=== PATIENT | female | born 1990 | race Caucasian/White ===

== ENCOUNTER 2017-12-30 02:19 | Outpatient (CLI) | payer OTHER, SELFPAY ==
--- NOTE | 2017-12-30 14:16 | DI.RAD_ITS ---
SYMPTOMS/DIAGNOSIS: MENSTRUAL IRREGULARITY, N92.6, ATTEMPTING HYSTEROSALPINGOGRAM: Fluoroscopy Time: 1 sec Hysterosalpingogram was performed in conjunction with Dr. Mari Hinojosa of the Department of Obstetrics and Gynecology. The procedure was performed according to protocol. Flow from the fallopian tubes into the peritoneal cavity was identified bilaterally. No filling defects were seen within the uterine cavity. IMPRESSION: No evidence of tubal obstruction. The findings were discussed with Dr. Hinojosa on the date of the examination.
== END 2017-12-30 02:39 ==
PROVIDERS: PCP Family Medicine; Visit Provider Obstetrics & Gynecology Gynecology
DX: N92.6 Irregular menstruation, unspecified (principal); N97.9 Female infertility, unspecified
CPT/HCPCS: 74740

== ENCOUNTER 2018-02-19 14:26 | Outpatient (CLI) | payer OTHER, SELFPAY ==
--- NOTE | 2018-02-19 14:31 | DI.US_ITS ---
SYMPTOM/DIAGNOSIS: SPOTTING, ? VIABILITY OBSTETRICAL ULTRASOUND: Routine examination was performed. There is a single intrauterine gestation present. Estimated sonographic age based on crown/rump length is 6 weeks 5 days. heart rate is 126 beats/minute. Yolk sac was visualized and is unremarkable. Both ovaries are visualized. There are complex cysts seen in both ovaries. In the right ovary there is a 2.1 x 1.9 x 1.5 cm complex cyst. In the left ovary there is a 2.1 x 1.2 x 1.5 cm complex cyst and a 2.2 x 3.4 x 1.5 cm simple cyst. There is normal blood flow to the ovaries. The uterine size is 9.1 cm x 6.8 x 5.4 cm. IMPRESSION: Single living intrauterine gestation. Estimated sonographic age is 6 weeks 5 days. Many abnormalities cannot be diagnosed. A normal exam does not exclude a congenital anomaly. Radiology No. [id number] LMP: 01/01/18 Exam Date: 02/19/18 [facility] wks days on EDC ([facility]) 09/07/18 Confirmed: HISTORY: ? VIABILITY ---- PREDICTED GESTATIONAL AGE NUMBER 7- weeks with a range of 6- week to 8- weeks. 1 Determined by___1STUS_XX__LMP___HISTORY Info. pertaining to fetus # PLACENTA PRESENTATION Grade Cephalic___ Anterior___Posterior___ Breech____ Right Left Transverse(head right___ Fundal___Low-lying___Previa___ Transverse(head left___ Varying BIOMETRY AMNIOTIC FLUID BPD: mm weeks Normal HC: mm weeks Oligo Polyhydramnios AC: mm weeks FL: mm weeks AMNIOTIC FLUID INDEX >26 WK CRL: 7.7 mm 6 +5 weeks Cisterna Magna: mm CI: RUQ: LUQ Cerebellum: cm EFW: grams Percentile RLQ: LLQ Total: cms Composite AGE= 6 +5 wks EDC by US__09/09/2018 BIOPHYSICAL PROFILE ANATOMY IDENTIFIED SCORE 0/2 Heart: 4-Chamber___Rate:BPM__126 BPM___ LVOT: RVOT: Amniotic Fluid(>2cms)____ Stomach: Kidneys: Respirations (>30 secs) Bladder: Post. Fossa: Body Flex/Extension 3 vessel cord: Ventricles: cord insertion: Lips:____ Extremity Flex/Extension spinal morphology: Nose: Total Score= Palate: NS=not seen
[2018-02-19 15:54] LABS: HCG Quant, Pregnancy 42030 mIU/mL (1-3)
== END 2018-02-19 14:46 ==
PROVIDERS: PCP Family Medicine; Visit Provider Advanced Practice Midwife
DX: O26.851 Spotting complicating pregnancy, first trimester (principal)
CPT/HCPCS: 36415; 76817; 84702

== ENCOUNTER 2018-03-15 11:56 | Outpatient (CLI) | payer OTHER, SELFPAY ==
[2018-03-15 12:45] LABS: Abs Immature Grans 0.03 k/cumm (0.0-0.09); Absolute Basophil Count 0.01 k/cumm (0.0-0.2); Absolute Eosinophil Count 0.04 k/cumm (0.0-0.7); Absolute Lymphocyte Count 2.32 k/cumm (1.2-3.4); Absolute Monocyte Count 0.52 k/cumm (0.11-0.7); Absolute Neutrophil Count 6.62 k/cumm (1.2-6.7); Basophils % 0.1; Eosinophils % 0.4; HCT 40.7 % (36.0-46.0); HGB 13.6 g/dL (12.0-15.5); Immature Grans % 0.3; Lymphocytes % 24.3; Mean Corp. HGB Concentration 33.4 g/dL (32.0-36.0); Mean Corpuscular Hemoglobin 30.2 pg (27.0-33.0); Mean Corpuscular Volume 90.2 fL (80-95); Mean Platelet Volume 9.8 fL (8.0-11.0); Monocytes % 5.5; Neutrophils % 69.4; Platelet Count 272 x1000/uL (130-400); RBC 4.51 m/cumm (4.00-5.20); RBC Distribution Width 12.9 % (11.7-14.6); White Blood Cell Count 9.54 k/cumm (4.4-10.8)
[2018-03-15 13:39] LABS: TSH (W/Ref FT4) 1.57 uIU/mL (0.358-3.74)
[2018-03-16 10:54] LABS: Varicella IgG Antibody Positive
[2018-03-16 11:13] LABS: Hepatitis B Surface Ag Negative (NEGAT); Hepatitis C Ab w Rflx HCV PCR Negative (NEGAT)
[2018-03-16 11:14] LABS: Rubella IgG Ab (UVM) Positive
[2018-03-16 11:25] LABS: Syphilis Serology (RPR) Negative (Negative)
[2018-03-16 12:28] LABS: HIV-1/2 Ag & Ab Screen Negative (NEGAT)
== END 2018-03-15 12:16 ==
PROVIDERS: PCP Family Medicine; Visit Provider Advanced Practice Midwife
DX: Z34.91 Encounter for supervision of normal pregnancy, unspecified, first trimester (principal); Z11.59 Encounter for screening for other viral diseases; Z01.84 Encounter for antibody response examination; Z11.4 Encounter for screening for human immunodeficiency virus [HIV]
CPT/HCPCS: 36415; 80055; 86787; 86803; 86850; 86900; 86901; 87340; 87389; 84443; 86592; 86762

== ENCOUNTER 2018-03-15 12:31 | Outpatient (REF) | payer OTHER, SELFPAY ==
--- NOTE | 2018-03-15 11:30 | PAPFT_PTH ---
PATIENT: Shawn Whitney LOC: [facility] U#:[id number] AGE/SX: 27/F ROOM: RE03/15/[address]: Albaro Fung RN : 1990 BED: DIS: 03/15/2018 SPEC #: [id number] RECD: 03/15/18 18:04 STATUS: SIDDHARTHA REMayank #: [id number] SUNG: 03/15/18 11:[address]: Albaro Fung DEPT: [facility] Cytology RECD BY: Malorie Peguero ENTERED: 03/15/18 18:05 SP TYPE: PAPFT OTHR DR: Allen Cui Tissues: 1 - CX/ENDOCX FOR PAP SMEARS Procedures: PAP THIN PREP/UVM Screening Comments: [id number] (UNSATISFACTORY FOR EVALUATION)
[2018-03-15 15:32] LABS: Bilirubin Negative (Negative); Blood Negative (Negative); Clarity Cloudy; Glucose Negative (Negative); Ketones Trace mg/dL (Negative); Leukocyte Esterase Negative (Negative); Nitrite Negative (Negative); Specific Gravity >= 1.030 (1.005-1.025); Urobilinogen 0.2 EU/dL (Up TO 0.2)
[2018-03-15 15:47] LABS: Tricyclic Antidepressants Negative (Negative)
[2018-03-15 15:52] LABS: *AMPHETAMINES SCREEN URINE Negative (Negative); *BARBITURATES SCREEN URINE Negative (Negative); *BENZODIAZEPINES SCREEN URINE Negative (Negative); Cannabinoids THC Negative (Negative); Cocaine Screen,Urine Negative (Negative); METHADONE URINE SCREEN Negative (Negative); OPIATES URINE SCREEN Negative (Negative)
[2018-03-16 15:21] LABS: Chlamydia Result Negative; GC Result Negative; Specimen Description CERVIX
[2018-03-19 18:33] LABS: Buprenorphine Negative; Norbuprenorphine Negative
== END 2018-03-15 12:51 ==
LOC: LBN 12:31
PROVIDERS: PCP Family Medicine; Visit Provider Advanced Practice Midwife
DX: Z34.91 Encounter for supervision of normal pregnancy, unspecified, first trimester (principal); Z11.3 Encounter for screening for infections with a predominantly sexual mode of transmission; Z12.4 Encounter for screening for malignant neoplasm of cervix
CPT/HCPCS: 80307; 87491; 87591; 88142; 81003; 87086

== ENCOUNTER 2018-03-31 08:21 | Outpatient (CLI) | payer OTHER, SELFPAY ==
[2018-03-31 08:56] LABS: Kit/Specimen SENT
[2018-04-07 16:38] LABS: Result Summary NEGATIVE; Specimen WB Whole Blood
== END 2018-03-31 08:41 ==
PROVIDERS: PCP Family Medicine; Visit Provider Nurse Practitioner
DX: Z34.91 Encounter for supervision of normal pregnancy, unspecified, first trimester (principal); Z13.228 Encounter for screening for other metabolic disorders
CPT/HCPCS: 36415; 81220

== ENCOUNTER 2018-04-19 13:00 | Emergency (ER) | payer OTHER, SELFPAY ==
[2018-04-19 13:22] VITALS: BP 136/76; PULSE 91; RESP 20; TEMP 36.8; O2SAT 100
--- NOTE | 2018-04-19 14:10 | W.ED.GENAD ---
Discharge Plan Disposition Patient Disposition: HOME Condition: Good Discharge Details Chief Complaint: Palpitatns Clinical Impression: Palpitations, Acute hypokalemia Primary Care Provider: Allen Cui ED Provider: Tian Gill Home Meds and New Rx's Prescriptions: No Action prenat.vits,navin,bax-rbti-lecwr tablet 1 tab PO DAILY Qty: 30 RF: 0 acetaminophen [Tylenol Extra Strength] 500 MG tablet 500 mg PO PRN RF: 0 Discharge Instructions Instructions: Palpitations (ED), Hypokalemia (ED) Additional Instructions: Please eat foods that are rich in potassium. 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 If you notice any worsening of your symptoms, or any new symptoms such as vomiting, diarrhea, fever, chills, shortness of breath, chest pain, numbness, weakness, or fainting , please return immediately to the emergency department for reevaluation. Please follow up with your primary care provider as soon as possible for reassessment and reevaluation. As always, it was a pleasure participating in your medical care today. Referrals: Allen Cui [Primary Care Provider] - Discharge Data Discharge Date/Time-TO BE ENTERED AT DEPARTURE: 04/19/18 15:39 Medical Decision Making This is a very pleasant 28-year-old female who is a who is currently 15 weeks who presents today for evaluation of palpitations. It is been occurring over the last 5 days, it has been intermittent, and very brief. She has no associated symptoms of lightheadedness, chest pain, shortness of breath, numbness, tingling, or syncopal-like symptoms. Physical exam demonstrates no significant abnormality. Vital signs are stable and reassuring. EKG demonstrates no significant abnormalities or changes. Electrolytes demonstrate mild hypokalemia at 3.3, which we have corrected with oral potassium but no evidence of other significant electrolyte abnormality. TSH is normal. Patient's vital signs and laboratory workup is otherwise encouraging and reassuring. Because of this patient's symptomatology we will give her a Zeo patch for outpatient home use to evaluate her palpitations. With a reassuring workup and vital signs I feel she can be safely discharged home with close follow-up with her OB doctor and her family doctor. We also encouraged a diet high in potassium. We discussed red flags which to return and the patient understands. I have extensively reviewed the treatment plan and discharge instructions with the patient and their family. I have addressed all patient concerns at this time. The patient and family was made aware of what symptoms to monitor for that would warrant a return to the emergency department. Discussed the plan with the patient and family, they demonstrate verbal understanding and agreement with our assessment and plan at this time. EKG 13: 36 Rate 87, intervals normal, sinus rhythm, no ST elevations or depressions, no T wave inversions except for V1. No significant interval abnormalities. No epsilon wave, no delta wave, no signs of STEMI. No evidence of dysrhythmia. HPI General Date/Time Provider Initiated Documentation: 04/19/18 14:04. HPI Narrative: This is a 28-year-old female who is currently 15 weeks who presents today for evaluation of palpitations. She states that for the last 5 days she has had occasional very brief intermittent palpitations which occur at rest, and never with activity. She has had no associated chest pain, lightheadedness, numbness, tingling, weakness, fever, chills. She has not had any excessive caffeine intake, she denies any IV or illicit drug use. She denies any history of symptoms like this in the past. She has no other modifying factors. She denies any pertinent family history, or any recent surgical history. Related Data Home Medications Medication Instructions Recorded Confirmed acetaminophen [Tylenol Extra 500 mg PO PRN 10/27/14 04/19/18 Strength] 1 tab PO DAILY #30 tab 02/11/18 04/19/18 vitamin,calcium,nqffketp-thnp-ysfhp acid tablet Previous Rx's Medication Instructions Recorded 1 tab PO DAILY #30 tab 02/11/18 vitamin,calcium,nzpmmwub-izcp-ovtqc acid tablet Allergies Allergy/AdvReac Type Severity Reaction Status Date / Time betamethasone dipropionate Allergy Severe rash Unverified 04/19/18 13:27 [From Lotrisone] clotrimazole [From Lotrisone] Allergy Severe rash Unverified 04/19/18 13:27 adhesive Allergy Intermediate rash Unverified 04/19/18 13:27 General Stated Complaint: Palpitatns LYNN: 3 Review of Systems Review of Systems All systems reviewed & are unremarkable except as noted in HPI and below PFSH Medical History Ankle pain, chronic (Chronic) Chronic low back pain (Chronic) Depression (Chronic) Recurrent candidiasis of vagina (Resolved) Exposed orthopaedic hardware (Acute) Fixation hardware in leg (Acute) Surgical History History of skin graft (Acute) brain surgery Family History Mother Essential hypertension Hyperlipidemia Father Chronic pain Maternal Aunt Personal history of malignant neoplasm Maternal Aunt Mental disorder Paternal Aunt Breast cancer Social History adopted: No household members: spouse and other details: 2 Spouse Caesar number of children: 0 current occupational status: employed current occupation: [employer] pets and animals: Yes (Wm and Pluto) pets and animals: dog(s) leisure activities: exercise and volunteer work details: 30 min 7 days/wk Smoking/Tobacco Use Status: Never second hand exposure: Yes alcohol intake: current alcohol intake frequency: a few times a week substance use type: does not use seatbelt use: always Female Reproductive History Menstrual Age of Menarche: 13 Duration of menses: 6-7 days control method: pills History History 1 Para 0 Hx # Term Pregnancies 0 Multiple births 0 Hx # Pregnancies 0 Ectopic pregnancies 0 AB induced 0 Hx Number of Living Children 0 AB spontaneous 0 Exam Narrative Exam Narrative: 1.Const: Well-nourished, Well-developed, appearing stated age 2.Eyes: PERRL, no conjunctival injection, and symmetrical lids. 3.ENT: Atraumatic external nose and ears. Moist MM. Neck: Symmetric, trachea midline, No thyromegaly. 4.CVS: +S1/S2, No murmurs or gallops. Peripheral pulses 2+ and equal in all extremities. Brisk capillary refill in all extremities. 5.RESP: Unlabored respiratory effort. Clear to auscultation bilaterally. No wheezes rales or rhonchi 6.GI: Soft, Nontender/Nondistended, No hepatosplenomegaly. No guarding or rebound. Appropriately gravid abdomen. No abdominal tenderness. 7.MSK: Normocephalic/Atraumatic, Extremities w/o deformity or ttp No cyanosis or clubbing, Normal movement of all extremities 8.Skin: Warm, Dry. No rashes or lesions. 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 Sensation grossly intact, no focal neurologic deficits. 10.Psych: (AAO) x3. Appropriate mood and affect Course Vital Signs Temperature 36.8 C 04/19/18 13:22 Pulse 91 H 04/19/18 13:22 Respiratory Rate 20 04/19/18 13:22 Blood Pressure 136/76 04/19/18 13:22 Pulse Oximetry 100 04/19/18 13:22 Temperature 36.8 C 04/19/18 13:22 Temperature Source Temporal Artery Scan 04/19/18 13:22 Pulse 91 H 04/19/18 13:22 Respiratory Rate 20 04/19/18 13:22 Respiratory Effort Non-Labored 04/19/18 13:22 Blood Pressure 136/76 04/19/18 13:22 Blood Pressure Position Sitting 04/19/18 13:22 Pulse Oximetry 100 04/19/18 13:22 Oxygen Delivery Method Room Air 04/19/18 13:22 Oxygen Flow Rate 0 04/19/18 13:22 Pain Level 3 04/19/18 13:27
[2018-04-19 14:22] LABS: Abs Immature Grans 0.03 k/cumm (0.0-0.09); Absolute Basophil Count 0.01 k/cumm (0.0-0.2); Absolute Eosinophil Count 0.04 k/cumm (0.0-0.7); Absolute Monocyte Count 0.47 k/cumm (0.11-0.7); Absolute Neutrophil Count 7.01 k/cumm (1.2-6.7); Basophils % 0.1; Eosinophils % 0.4; HCT 39.9 % (36.0-46.0); HGB 13.5 g/dL (12.0-15.5); Immature Grans % 0.3; Lymphocytes % 23.3; Mean Corp. HGB Concentration 33.8 g/dL (32.0-36.0); Mean Corpuscular Volume 88.7 fL (80-95); Mean Platelet Volume 9.9 fL (8.0-11.0); Monocytes % 4.8; Neutrophils % 71.1; Platelet Count 241 x1000/uL (130-400); RBC Distribution Width 12.4 % (11.7-14.6); White Blood Cell Count 9.86 k/cumm (4.4-10.8)
[2018-04-19 14:46] LABS: ALT 18 U/L (12-78); AST 11 U/L (15-37); Albumin 3.4 g/dL (3.4-5.0); Alkaline Phosphatase 79 U/L (46-116); Anion Gap 9.5 mmol/L (3-11); BUN 10 mg/dL (7-18); Bilirubin, Total 0.2 mg/dL (0.2-1.0); CO2 27.5 mmol/L (21.0-32.0); CREATININE 0.62 mg/dL (0.55-1.02); Calcium 9.1 mg/dL (8.5-10.1); Chloride 101 mmol/L (98-107); Glucose 88 mg/dL (70-100); Magnesium 1.8 mg/dL (1.8-2.4); PHOSPHORUS 3.1 mg/dL (2.6-4.7); Potassium 3.3 mmol/L (3.5-5.1); Sodium 138 mmol/L (136-145); TSH (W/Ref FT4) 1.69 uIU/mL (0.358-3.74); Total Protein 7.6 g/dL (6.4-8.2)
[2018-04-19 14:48] LABS: Troponin I < 0.02 ng/mL (0.00-0.06)
[2018-04-19] MEDS: Potassium Chloride 20 MEQ TABCR 40 MEQ PO (15:13)
[2018-04-19 15:14] VITALS: BP 136/76; PULSE 91; RESP 20; TEMP 36.8; O2SAT 100
--- NOTE | 2018-05-03 11:15 | ZIOP_ITS ---
ZIO PATCH DATE OF DICTATION May 03, 2018 STUDY INDICATION PALPITATIONS. REQUESTING PROVIDER Allen Cui M.D. FINDINGS The patient was monitored for 7 days and 3 hours. The patient was in sinus rhythm throughout, average heart rate 86 beats per minute, range 56 to 165 beats per minute. There was rare ectopy, less than 1% PACs and PVCs. There were no tachy or rossana arrhythmias. There were 60 patient events. None of these events correlated with arrhythmias. FINAL INTERPRETATION Normal study. Tramaine Cook M.D. VALERIE/alysia T - 05/03/2018
== END 2018-04-19 15:39 | disposition home or self-care (01) ==
PROVIDERS: Emergency Provider Student in an Organized Health Care Education/Training Program; PCP Family Medicine
DX: O99.412 Diseases of the circulatory system complicating pregnancy, second trimester (principal); R00.2 Palpitations; E87.6 Hypokalemia; Z3A.15 15 weeks gestation of pregnancy
CPT/HCPCS: 36415; 80053; 93005; 93225; 99284; 83735; 84100; 84443; 84484; 85025; 93010

== ENCOUNTER 2018-05-10 09:24 | Outpatient (CLI) | payer OTHER, SELFPAY ==
[2018-05-11 13:49] LABS: AFP 91.5 ng/mL; Calculated age at EDD 29 years; Cigarette smoking status non-smoker; GA used in risk estimate Scan estimate; IVF Pregnancy No; Initial or repeat testing Initial testing; Insulin dependent diabetes No; Maternal Weight 174 lbs; Number of Fetuses 1; Prev Pregnancy w/NTD No; RECOMMENDED FOLLOW UP None.; Results Summary Normal risk
== END 2018-05-10 09:44 ==
PROVIDERS: PCP Family Medicine; Visit Provider Advanced Practice Midwife
DX: Z34.92 Encounter for supervision of normal pregnancy, unspecified, second trimester (principal); Z36.89 Encounter for other specified antenatal screening
CPT/HCPCS: 36415; 82105

== ENCOUNTER 2018-05-17 00:58 | Outpatient (CLI) | payer OTHER, SELFPAY ==
--- NOTE | 2018-05-17 10:22 | DI.US_ITS ---
SYMPTOM/DIAGNOSIS: 18 SONO FOR ANATOMY. Z34.90 OB ULTRASOUND: Comparison is made with 19 Feb 2018. The fetus was in variable position during the exam. The placenta is anterior. The biometric measurements correspond to 19 weeks 1 day, consistent with previous dating. No abnormalities are identified. The amount of amniotic fluid appears normal. IMPRESSION: survey is within normal limits. Many abnormalities cannot be diagnosed. A normal exam does not exclude a congenital anomaly. Radiology No. [id number] LMP: Exam Date:05/17/18 [facility] 6 wks 5 days on 02/19/18 EDC ([facility]) Confirmed: HISTORY: SURVEY PREDICTED GESTATIONAL AGE NUMBER 19 +1 weeks with a range of 18 +1 week to 20 +1 weeks. 1 Determined by_XX__1STUS___LMP___HISTORY Info. pertaining to fetus # PLACENTA PRESENTATION Grade 0-I Cephalic___ Anterior_XX__Posterior___ Breech____ Right Left Transverse(head right___ Fundal___Low-lying___Previa___ Transverse(head left___ Varying___XX___ BIOMETRY AMNIOTIC FLUID BPD: 43 mm 19 +1 weeks Normal HC: 163 mm 19 - weeks AC: 135 mm 19 - weeks FL: 30 mm 19 +2 weeks AMNIOTIC FLUID INDEX >26 WK CRL: mm weeks Cisterna Magna: 4 mm CI: 0.78 RUQ: LUQ Cerebellum: 1.9 cm EFW: 273 grams Percentile RLQ: LLQ Total: cms Composite AGE= 19 +1 wks EDC by US___10/10/18 BIOPHYSICAL PROFILE ANATOMY IDENTIFIED SCORE 0/2 Heart: 4-Chamber_XX__Rate:BPM___157__ LVOT:___X RVOT:__X Amniotic Fluid(>2cms)____ Stomach:___X____ Kidneys:____X___ Respirations (>30 secs) Bladder:____X____ Post. Fossa:___X Body Flex/Extension 3 vessel cord:__X Ventricles:___X cord insertion:_X____ Lips:__X__ Extremity Flex/Extension spinal morphology:__X Nose: X Total Score= Palate:___X____ NS=not seen
== END 2018-05-17 01:18 ==
PROVIDERS: PCP Family Medicine; Visit Provider Advanced Practice Midwife
DX: Z34.92 Encounter for supervision of normal pregnancy, unspecified, second trimester (principal)
CPT/HCPCS: 76805

== ENCOUNTER 2018-07-19 02:02 | Outpatient (CLI) | payer OTHER, SELFPAY ==
[2018-07-19 08:24] LABS: HCT 36.1 % (36.0-46.0); Mean Corp. HGB Concentration 33.2 g/dL (32.0-36.0); Mean Corpuscular Hemoglobin 29.4 pg (27.0-33.0); Mean Corpuscular Volume 88.5 fL (80-95); Mean Platelet Volume 10.1 fL (8.0-11.0); Platelet Count 240 x1000/uL (130-400); RBC 4.08 m/cumm (4.00-5.20); RBC Distribution Width 13.3 % (11.7-14.6); White Blood Cell Count 9.13 k/cumm (4.4-10.8)
[2018-07-19 08:30] LABS: Glucose,1 Hr (Glucola) 139 mg/dL (80-140)
[2018-07-19 09:29] LABS: Potassium 3.8 mmol/L (3.5-5.1)
== END 2018-07-19 02:22 ==
PROVIDERS: PCP Family Medicine; Visit Provider Advanced Practice Midwife
DX: O99.282 Endocrine, nutritional and metabolic diseases complicating pregnancy, second trimester; E87.6 Hypokalemia
CPT/HCPCS: 36415; 82950; 85027; 84132

== ENCOUNTER 2018-08-13 02:48 | Outpatient (CLI) | payer OTHER, SELFPAY ==
[2018-08-13 09:44] LABS: Glucose 1 Hour 137 mg/dL
[2018-08-13 11:44] LABS: Glucose 3 Hour 100 mg/dL
== END 2018-08-13 03:08 ==
PROVIDERS: PCP Family Medicine; Visit Provider Advanced Practice Midwife
DX: Z34.93 Encounter for supervision of normal pregnancy, unspecified, third trimester (principal)
CPT/HCPCS: 36410; 82951

== ENCOUNTER 2018-09-16 16:05 | Outpatient (REF) | payer OTHER, SELFPAY | END 2018-09-16 16:25 | LOC: LBN 16:05 | PROVIDERS: PCP Family Medicine; Visit Provider Advanced Practice Midwife | DX: Z34.93 Encounter for supervision of normal pregnancy, unspecified, third trimester (principal); Z36.85 Encounter for antenatal screening for Streptococcus B | CPT/HCPCS: 87081 ==

== ENCOUNTER 2018-09-22 13:36 | Outpatient (REF) | payer OTHER, SELFPAY ==
[2018-09-22 19:21] LABS: HCT 37.1 % (36.0-46.0); HGB 12.1 g/dL (12.0-15.5); Mean Corp. HGB Concentration 32.6 g/dL (32.0-36.0); Mean Corpuscular Hemoglobin 27.9 pg (27.0-33.0); Mean Corpuscular Volume 85.5 fL (80-95); Mean Platelet Volume 11.3 fL (8.0-11.0); Platelet Count 241 x1000/uL (130-400); RBC 4.34 m/cumm (4.00-5.20); RBC Distribution Width 14.1 % (11.7-14.6); White Blood Cell Count 11.41 k/cumm (4.4-10.8)
[2018-09-22 19:34] LABS: ALT 19 U/L (12-78); AST 13 U/L (15-37); Alkaline Phosphatase 148 U/L (46-116); BUN 8 mg/dL (7-18); Bilirubin, Total 0.2 mg/dL (0.2-1.0); Chloride 101 mmol/L (98-107); Glucose 76 mg/dL (70-100); Potassium 4.3 mmol/L (3.5-5.1); Sodium 134 mmol/L (136-145); Total Protein 6.5 g/dL (6.4-8.2); Uric Acid 4.3 mg/dL (2.6-6.0)
[2018-09-22 19:59] LABS: PROTEIN < 6.0 mg/dL
[2018-09-22 20:06] LABS: COMMENT (LAB VIEW ONLY) 32.07 mg/dL
== END 2018-09-22 13:56 ==
LOC: NCHCN 13:36
PROVIDERS: PCP Family Medicine; Visit Provider Family Medicine
DX: R03.0 Elevated blood-pressure reading, without diagnosis of hypertension (principal)
CPT/HCPCS: 80053; 85027; 82565; 84156; 84550

== ENCOUNTER 2018-09-24 09:49 | Outpatient (REF) | payer OTHER, SELFPAY ==
[2018-09-24 11:31] LABS: *AMPHETAMINES SCREEN URINE Negative (Negative); *BARBITURATES SCREEN URINE Negative (Negative); *BENZODIAZEPINES SCREEN URINE Negative (Negative); Cannabinoids THC Negative (Negative); Cocaine Screen,Urine Negative (Negative); METHADONE URINE SCREEN Negative (Negative); OPIATES URINE SCREEN Negative (Negative)
[2018-09-24 11:37] LABS: Tricyclic Antidepressants Negative (Negative)
[2018-09-28 14:45] LABS: Buprenorphine Negative; Norbuprenorphine Negative
== END 2018-09-24 10:09 ==
LOC: LBN 09:49
PROVIDERS: PCP Family Medicine; Visit Provider Advanced Practice Midwife
DX: Z34.90 Encounter for supervision of normal pregnancy, unspecified, unspecified trimester (principal)
CPT/HCPCS: 80307

== ENCOUNTER 2018-10-11 12:11 | Outpatient (CLI) | payer OTHER, SELFPAY ==
[2018-10-11 12:59] LABS: ROM Plus Negative
== END 2018-10-11 12:31 ==
PROVIDERS: PCP Family Medicine; Visit Provider Advanced Practice Midwife
DX: O42.92 Full-term premature rupture of membranes, unspecified as to length of time between rupture and onset of labor (principal); Z3A.39 39 weeks gestation of pregnancy
CPT/HCPCS: 84112; 59025

== ENCOUNTER 2018-10-16 08:10 | Inpatient (IN) | payer OTHER, SELFPAY ==
[2018-10-16 10:03] LABS: HCT 34.5 % (36.0-46.0); HGB 11.1 g/dL (12.0-15.5); Mean Corp. HGB Concentration 32.2 g/dL (32.0-36.0); Mean Corpuscular Hemoglobin 27.3 pg (27.0-33.0); Mean Platelet Volume 11.3 fL (8.0-11.0); Platelet Count 202 x1000/uL (130-400); RBC 4.06 m/cumm (4.00-5.20); RBC Distribution Width 15.2 % (11.7-14.6); White Blood Cell Count 10.12 k/cumm (4.4-10.8)
[2018-10-16 10:27] LABS: ROM Plus Negative
[2018-10-16] MEDS: Penicillin G POT. 5,000,000 UNITS in Normal Saline 100 ML 200 UNITS IVPB (14:22)
[2018-10-16] MEDS: Ibuprofen 600 MG TAB PO (21:30)
[2018-10-16] MEDS: Acetaminophen 325 MG TAB 650 MG PO (21:30)
[2018-10-16] MEDS: Hamamelis Leaf/Glycerin 100 EACH BOX PR (22:01)
[2018-10-17] MEDS: Acetaminophen 325 MG TAB 650 MG PO ×5 (01:02→22:12)
[2018-10-17] MEDS: Ibuprofen 600 MG TAB PO ×3 (05:31→19:26)
[2018-10-17 08:10] LABS: HCT 31.2 % (36.0-46.0); HGB 9.9 g/dL (12.0-15.5); Mean Corp. HGB Concentration 31.7 g/dL (32.0-36.0); Mean Corpuscular Volume 85.2 fL (80-95); Mean Platelet Volume 11.2 fL (8.0-11.0); Platelet Count 195 x1000/uL (130-400); RBC 3.66 m/cumm (4.00-5.20); RBC Distribution Width 15.3 % (11.7-14.6); White Blood Cell Count 15.05 k/cumm (4.4-10.8)
[2018-10-18] MEDS: Ibuprofen 600 MG TAB PO ×2 (02:08→08:22)
[2018-10-18] MEDS: Acetaminophen 325 MG TAB 650 MG PO ×2 (02:08→07:44)
[2018-10-18] MEDS: Hamamelis Leaf/Glycerin 100 EACH BOX PR (12:55)
== END 2018-10-18 13:05 | disposition home or self-care (01) | DRG 807 ==
PROVIDERS: Admitting Provider Advanced Practice Midwife; PCP Family Medicine; Visit Provider Advanced Practice Midwife
DX: O70.0 First degree perineal laceration during delivery (principal); Z37.0 Single live birth; Z3A.40 40 weeks gestation of pregnancy; O99.824 Streptococcus B carrier state complicating childbirth; Z11.2 Encounter for screening for other bacterial diseases; O90.81 Anemia of the puerperium; D64.9 Anemia, unspecified; Z67.10 Type A blood, Rh positive
CPT/HCPCS: 36415; 84112; 85027; 86850; 86900; 86901; 87480; 87510; 87660; J2540

== ENCOUNTER 2019-02-17 09:58 | Outpatient (REF) | payer OTHER, SELFPAY ==
--- NOTE | 2019-02-17 09:30 | PAPFT_PTH ---
PATIENT: Shawn Whitney LOC: [facility] U#:[id number] AGE/SX: 28/F ROOM: RE02/17/[address]: Nickolas Adorno MD : 1990 BED: DIS: 02/17/2019 SPEC #: [id number] RECD: 02/17/19 12:46 STATUS: SIDDHARTHA REQ #: [id number] SUNG: 02/17/19 09:[address]: Nickolas Adorno DEPT: ON LICENSE OF [facility] Cytology RECD BY: Malorie Peguero ENTERED: 02/17/19 12:46 SP TYPE: PAPFT OTHR DR: Allen Cui Tissues: 1 - CX/ENDOCX FOR PAP SMEARS Procedures: PAP THIN PREP/UVM Screening HPV DNA PROBE Comments: [id number]
== END 2019-02-17 10:18 ==
LOC: LBN 09:58
PROVIDERS: PCP Family Medicine; Visit Provider Obstetrics & Gynecology
DX: Z12.4 Encounter for screening for malignant neoplasm of cervix (principal); Z11.51 Encounter for screening for human papillomavirus (HPV)
CPT/HCPCS: 88142; 87624

== ENCOUNTER 2019-07-25 00:54 | Outpatient (CLI) | payer OTHER, SELFPAY ==
--- NOTE | 2019-07-25 06:45 | DI.US_ITS ---
EXAM: US BREAST LT LIMITED CLINICAL HISTORY: lower outer quadrant left breast, pea-size lump,N63.0,FAMILY H/O BREAST CA TECHNIQUE: Ultrasound left breast performed using standard protocol. COMPARISON: No exams were available for comparison FINDINGS: No solid or cystic masses, hypoechoic foci, areas of abnormal shadowing, or areas of skin thickening. IMPRESSION: No sonographically suspicious finding. DATA REPOSITORY:
== END 2019-07-25 01:14 ==
PROVIDERS: PCP Family Medicine; Visit Provider Advanced Practice Midwife
DX: N63.23 Unspecified lump in the left breast, lower outer quadrant (principal); Z80.3 Family history of malignant neoplasm of breast
CPT/HCPCS: 76642

== ENCOUNTER 2020-02-28 13:27 | Outpatient (REF) | payer OTHER, SELFPAY ==
[2020-03-03 14:56] LABS: Patient Race White; SARS-CoV-2 RNA Undetected (Undetected); SARS-CoV-2 Specimen Source Nasal
== END 2020-02-28 13:47 ==
LOC: NCHCN 13:27
PROVIDERS: PCP Family Medicine; Visit Provider Nurse Practitioner Family
DX: Z01.89 Encounter for other specified special examinations (principal)
CPT/HCPCS: U0003

== ENCOUNTER 2020-04-24 15:22 | Outpatient (REF) | payer OTHER, SELFPAY ==
[2020-04-26 14:40] LABS: COVID-19 RT-PCR UVMMC Result Negative (Negative)
== END 2020-04-24 15:42 ==
LOC: NCHCN 15:22
PROVIDERS: PCP Family Medicine; Visit Provider Nurse Practitioner Family
DX: Z20.828 Contact with and (suspected) exposure to other viral communicable diseases (principal)
CPT/HCPCS: U0003

== ENCOUNTER 2020-05-15 14:16 | Outpatient (REF) | payer OTHER, SELFPAY ==
[2020-05-17 15:43] LABS: 2-Hydroxy Ethyl Flurazepam Not Detected ng/mL (Cutoff: 10); 6-monoacetylmorphine Not Detected ng/mL (Cutoff: 25); Alpha-Hydroxy Midazolam Not Detected ng/mL (Cutoff: 10); Alpha-Hydroxy Triazolam Not Detected ng/mL (Cutoff: 10); Alpha-Hydroxyalprazolam Not Detected ng/mL (Cutoff: 10); Alpha-OH-alprazolam Glucuronid Not Detected ng/mL (Cutoff: 50); Alprazolam Not Detected ng/mL (Cutoff: 10); Amphetamines Negative ng/mL (Cutoff: 500); Barbiturates Negative ng/mL (Cutoff: 200); Buprenorphine Not Detected ng/mL (Cutoff: 5); Chlordiazepoxide Not Detected ng/mL (Cutoff: 10); Clobazam Not Detected ng/mL (Cutoff: 10); Clonazepam Not Detected ng/mL (Cutoff: 10); Cocaine Negative ng/mL (Cutoff: 150); Codeine Not Detected ng/mL (Cutoff: 25); Comment Normal; Creatinine, U 82.3 mg/dL; Diazepam Not Detected ng/mL (Cutoff: 10); Dihydrocodeine Not Detected ng/mL (Cutoff: 25); EDDP Not Detected ng/mL (Cutoff: 25); Fentanyl Not Detected ng/mL (Cutoff: 2); Flurazepam Not Detected ng/mL (Cutoff: 10); Hydrocodone Not Detected ng/mL (Cutoff: 25); Hydromorphone Not Detected ng/mL (Cutoff: 25); Hydromorphone-3-beta-glucuroni Not Detected ng/mL (Cutoff: 100); Lorazepam Not Detected ng/mL (Cutoff: 10); Lorazepam Glucuronide Not Detected ng/mL (Cutoff: 50); Meperidine Not Detected ng/mL (Cutoff: 25); Methadone Not Detected ng/mL (Cutoff: 25); Midazolam Not Detected ng/mL (Cutoff: 10); Morphine Not Detected ng/mL (Cutoff: 25); N-Desmethylclobazam Not Detected ng/mL (Cutoff: 200); N-desmethyltapentadol Not Detected ng/mL (Cutoff: 50); Naloxone Not Detected ng/mL (Cutoff: 25); Norbuprenorphine Not Detected ng/mL (Cutoff: 5); Norfentanyl Not Detected ng/mL (Cutoff: 2); Norhydrocodone Not Detected ng/mL (Cutoff: 25); Normeperidine Not Detected ng/mL (Cutoff: 25); Noroxycodone Not Detected ng/mL (Cutoff: 25); Noroxymorphone Not Detected ng/mL (Cutoff: 25); O-desmethyltramadol Not Detected ng/mL (Cutoff: 25); Oxazepam Glucuronide Not Detected ng/mL (Cutoff: 50); Phencyclidine Negative ng/mL (Cutoff: 25); Prazepam Not Detected ng/mL (Cutoff: 10); Propoxyphene Not Detected ng/mL (Cutoff: 25); Specific Gravity 1.013; Tapentadol Not Detected ng/mL (Cutoff: 25); Temazepam Not Detected ng/mL (Cutoff: 10); Temazepam Glucuronide Not Detected ng/mL (Cutoff: 50); Tetrahydrocannabinol Negative ng/mL (Cutoff: 50); Tramadol Not Detected ng/mL (Cutoff: 25); Triazolam Not Detected ng/mL (Cutoff: 10); Zolpidem Phenyl-4-Carboxy acid Not Detected ng/mL (Cutoff: 10); pH 6.1
== END 2020-05-15 14:36 ==
LOC: LBN 14:16
PROVIDERS: PCP Family Medicine; Visit Provider Nurse Practitioner Family
DX: G89.29 Other chronic pain (principal); Z79.899 Other long term (current) drug therapy
CPT/HCPCS: 80307; 80347; 80364

== ENCOUNTER 2020-08-13 09:46 | Outpatient (REF) | payer OTHER, SELFPAY ==
[2020-08-16 10:53] LABS: 2-Hydroxy Ethyl Flurazepam Not Detected ng/mL (Cutoff: 10); 3,4-methylenedioxyamphetamine Not Detected ng/mL (Cutoff: 100); 3,4-methylenedioxyethylampheta Not Detected ng/mL (Cutoff: 100); 3,4-methylenedioxymethamphetam Not Detected ng/mL (Cutoff: 100); 6-monoacetylmorphine Not Detected ng/mL (Cutoff: 25); Alpha-Hydroxy Midazolam Not Detected ng/mL (Cutoff: 10); Alpha-Hydroxy Triazolam Not Detected ng/mL (Cutoff: 10); Alpha-Hydroxyalprazolam Not Detected ng/mL (Cutoff: 10); Alpha-OH-alprazolam Glucuronid Not Detected ng/mL (Cutoff: 50); Alprazolam Not Detected ng/mL (Cutoff: 10); Amphetamine Not Detected ng/mL (Cutoff: 100); Barbiturates Negative ng/mL (Cutoff: 200); Buprenorphine Not Detected ng/mL (Cutoff: 5); Chlordiazepoxide Not Detected ng/mL (Cutoff: 10); Clobazam Not Detected ng/mL (Cutoff: 10); Clonazepam Not Detected ng/mL (Cutoff: 10); Cocaine Negative ng/mL (Cutoff: 150); Codeine Not Detected ng/mL (Cutoff: 25); Comment Normal; Creatinine, U 82.6 mg/dL; Diazepam Not Detected ng/mL (Cutoff: 10); Dihydrocodeine Not Detected ng/mL (Cutoff: 25); EDDP Not Detected ng/mL (Cutoff: 25); Ephedrine Not Detected ng/mL (Cutoff: 100); Fentanyl Not Detected ng/mL (Cutoff: 2); Flurazepam Not Detected ng/mL (Cutoff: 10); Hydrocodone Not Detected ng/mL (Cutoff: 25); Hydromorphone Not Detected ng/mL (Cutoff: 25); Hydromorphone-3-beta-glucuroni Not Detected ng/mL (Cutoff: 100); Lorazepam Not Detected ng/mL (Cutoff: 10); Lorazepam Glucuronide Not Detected ng/mL (Cutoff: 50); Meperidine Not Detected ng/mL (Cutoff: 25); Methadone Not Detected ng/mL (Cutoff: 25); Methamphetamine Not Detected ng/mL (Cutoff: 100); Methylphenidate Not Detected ng/mL (Cutoff: 20); Midazolam Not Detected ng/mL (Cutoff: 10); Morphine Not Detected ng/mL (Cutoff: 25); N-Desmethylclobazam Not Detected ng/mL (Cutoff: 200); N-desmethyltapentadol Not Detected ng/mL (Cutoff: 50); Naloxone Not Detected ng/mL (Cutoff: 25); Norbuprenorphine Not Detected ng/mL (Cutoff: 5); Norfentanyl Not Detected ng/mL (Cutoff: 2); Norhydrocodone Not Detected ng/mL (Cutoff: 25); Normeperidine Not Detected ng/mL (Cutoff: 25); Noroxycodone Not Detected ng/mL (Cutoff: 25); Noroxymorphone Not Detected ng/mL (Cutoff: 25); O-desmethyltramadol Not Detected ng/mL (Cutoff: 25); Oxazepam Glucuronide Not Detected ng/mL (Cutoff: 50); Phencyclidine (PCP) Not Detected ng/mL (Cutoff: 20); Phentermine Not Detected ng/mL (Cutoff: 100); Prazepam Not Detected ng/mL (Cutoff: 10); Propoxyphene Not Detected ng/mL (Cutoff: 25); Pseudoephedrine Not Detected ng/mL (Cutoff: 100); Ritalinic Acid Not Detected ng/mL (Cutoff: 100); Specific Gravity 1.009; Tapentadol Not Detected ng/mL (Cutoff: 25); Temazepam Not Detected ng/mL (Cutoff: 10); Temazepam Glucuronide Not Detected ng/mL (Cutoff: 50); Tetrahydrocannabinol Negative ng/mL (Cutoff: 50); Tramadol Not Detected ng/mL (Cutoff: 25); Triazolam Not Detected ng/mL (Cutoff: 10); Zolpidem Phenyl-4-Carboxy acid Not Detected ng/mL (Cutoff: 10); pH 6.1
== END 2020-08-13 09:47 | disposition home or self-care (01) ==
LOC: LBN 09:46
PROVIDERS: PCP Family Medicine; Visit Provider Nurse Practitioner Family
DX: M25.571 Pain in right ankle and joints of right foot (principal); M54.5 Low back pain; G89.29 Other chronic pain; Z79.899 Other long term (current) drug therapy
CPT/HCPCS: 80307; 80347; 80364

== ENCOUNTER 2020-12-19 14:49 | Outpatient (REF) | payer OTHER, SELFPAY ==
[2020-12-19 20:19] LABS: HCT 42.7 % (36.0-46.0); HGB 13.6 g/dL (11.2-15.7); MCH 28.6 pg (27.0-33.0); MCHC 31.9 % (32.0-36.0); MCV 89.9 fL (80-95); MPV 10.5 fL (8.0-11.0); Platelet Count 317 10^3/uL (130-400); RBC 4.75 10^6/uL (3.93-5.22); RDW 12.7 % (11.7-14.6); RDW-SD 41.7 fL; WBC 9.72 10^3/uL (4.4-10.8)
[2020-12-19 20:26] LABS: Iron 84 ug/dL (50-170); Total Iron Binding Capacity 420 ug/dL (250-450); Transferrin Sat 20 % (15-50)
[2020-12-19 20:27] LABS: ALT 26 U/L (14-59); AST 14 U/L (15-37); Albumin 4.2 g/dL (3.4-5.0); Alkaline Phosphatase 71 U/L (46-116); Anion Gap 14.5 mmol/L (3-11); BUN 11 mg/dL (7-18); Bilirubin, Total 0.3 mg/dL (0.2-1.0); CO2 24.5 mmol/L (21.0-32.0); CREATININE 0.9 mg/dL (0.55-1.02); Chloride 102 mmol/L (98-107); Glucose 82 mg/dL (74-106); Potassium 4.6 mmol/L (3.5-5.1); Sodium 141 mmol/L (136-145); Total Protein 7.7 g/dL (6.4-8.2)
== END 2020-12-19 14:50 | disposition home or self-care (01) ==
LOC: LBN 14:49
PROVIDERS: PCP Family Medicine; Visit Provider Family Medicine
DX: D50.0 Iron deficiency anemia secondary to blood loss (chronic) (principal); Z51.81 Encounter for therapeutic drug level monitoring
CPT/HCPCS: 80053; 85027; 83540; 83550

== ENCOUNTER 2021-06-17 08:34 | Outpatient (CLI) | payer OTHER, SELFPAY ==
[2021-06-17 10:39] LABS: HCG Quant, Pregnancy 608 mIU/mL (1-3)
== END 2021-06-17 08:35 | disposition home or self-care (01) ==
LOC: LBO 08:35
PROVIDERS: Nurse Practitioner Women's Health; PCP Family Medicine; Visit Provider Obstetrics & Gynecology Gynecology
DX: Z32.01 Encounter for pregnancy test, result positive (principal)
CPT/HCPCS: 36415; 84702

== ENCOUNTER 2021-06-17 12:30 | Outpatient (CLI) | payer OTHER, SELFPAY | END 2021-06-17 12:31 | disposition home or self-care (01) | LOC: LBO 12:32 | PROVIDERS: PCP Family Medicine; Visit Provider Obstetrics & Gynecology Gynecology ==

== ENCOUNTER 2021-06-19 01:55 | Outpatient (CLI) | payer OTHER, SELFPAY ==
[2021-06-19 13:14] LABS: HCG Quant, Pregnancy 2028 mIU/mL (1-3)
== END 2021-06-19 01:56 | disposition home or self-care (01) ==
LOC: LBO 01:56
PROVIDERS: PCP Family Medicine; Visit Provider Obstetrics & Gynecology Gynecology
DX: O20.0 Threatened abortion (principal); Z32.01 Encounter for pregnancy test, result positive
CPT/HCPCS: 36415; 84702

== ENCOUNTER 2021-07-16 07:12 | Emergency (ER) | payer OTHER, SELFPAY ==
[2021-07-16 07:17] VITALS: BP 142/91; PULSE 120; RESP 18; TEMP 36.5; O2SAT 100
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
[2021-07-16 08:47] LABS: Abs Immature Grans 0.06 10^3/uL (0.0-0.06); Absolute Basophil Count 0.03 10^3/uL (0.0-0.2); Absolute Eosinophil Count 0.12 10^3/uL (0.0-0.7); Absolute Lymphocyte Count 2.21 10^3/uL (1.2-3.4); Absolute Monocyte Count 0.74 10^3/uL (0.1-0.8); Basophils % 0.2; Eosinophils % 0.8; HCT 40.9 % (36.0-46.0); HGB 13.6 g/dL (11.2-15.7); Immature Grans % 0.4; Lymphocytes % 15.3; MCH 30.1 pg (27.0-33.0); MCHC 33.3 % (32.0-36.0); MCV 90.5 fL (80-95); MPV 9.6 fL (8.0-11.0); Monocytes % 5.1; Neutrophils % 78.2; Nucleated RBC 0 %; Platelet Count 303 10^3/uL (130-400); RBC 4.52 10^6/uL (3.93-5.22); RDW-SD 42.6 fL; WBC 14.44 10^3/uL (4.4-10.8)
[2021-07-16 08:48] LABS: Absolute Neutrophil Count 11.29 10^3/uL (1.2-6.7)
[2021-07-16] MEDS: Normal Saline 1,000 ML 1000 ML IV (09:12)
[2021-07-16 09:13] LABS: ALT 22 U/L (14-59); AST 13 U/L (15-37); Albumin 3.6 g/dL (3.4-5.0); Alkaline Phosphatase 79 U/L (46-116); Anion Gap 8.1 mmol/L (3-11); BUN 8 mg/dL (7-18); Bilirubin, Total 0.3 mg/dL (0.2-1.0); CO2 25.9 mmol/L (21.0-32.0); CREATININE 0.7 mg/dL (0.55-1.02); Calcium 8.9 mg/dL (8.5-10.1); Chloride 104 mmol/L (98-107); Glucose 89 mg/dL (74-106); Lipase 117 U/L (73-393); Potassium 3.6 mmol/L (3.5-5.1); Sodium 138 mmol/L (136-145); Total Protein 7.4 g/dL (6.4-8.2)
[2021-07-16] MEDS: Acetaminophen 325 MG TAB 650 MG PO (09:14)
[2021-07-16] MEDS: Metoclopramide 10 MG/2 ML VIAL IVP (09:35)
[2021-07-16 11:09] LABS: Bilirubin Negative (Negative); Blood Negative (Negative); Clarity Clear (Clear); Glucose Negative (Negative); Ketones Negative (Negative); Leukocyte Esterase Negative (Negative); Nitrite Negative (Negative); Urobilinogen 0.2 EU/dL (Up TO 0.2)
[2021-07-16 12:43] VITALS: BP 129/88; PULSE 95; RESP 18; TEMP 37; O2SAT 100
[2021-07-16 12:49] VITALS: BP 129/88; PULSE 95; RESP 18; TEMP 37; O2SAT 100
== END 2021-07-16 12:46 | disposition home or self-care (01) ==
PROVIDERS: Emergency Provider Physician Assistant; PCP Family Medicine
DX: O26.891 Other specified pregnancy related conditions, first trimester (principal); R33.9 Retention of urine, unspecified; K59.00 Constipation, unspecified; Z3A.08 8 weeks gestation of pregnancy; R11.0 Nausea; R10.30 Lower abdominal pain, unspecified
CPT/HCPCS: 36415; 51701; 80053; 83690; 96361; 96374; 99284; 81003; 85025; J2765

== ENCOUNTER 2021-08-12 04:37 | Outpatient (CLI) | payer OTHER, SELFPAY ==
[2021-08-12 10:21] LABS: Kit/Specimen SENT
[2021-08-12 10:25] LABS: Abs Immature Grans 0.03 10^3/uL (0.0-0.06); Absolute Basophil Count 0.03 10^3/uL (0.0-0.2); Absolute Eosinophil Count 0.05 10^3/uL (0.0-0.7); Absolute Monocyte Count 0.51 10^3/uL (0.1-0.8); Absolute Neutrophil Count 6.33 10^3/uL (1.2-6.7); Basophils % 0.3; Eosinophils % 0.5; HCT 39.4 % (36.0-46.0); HGB 12.8 g/dL (11.2-15.7); Immature Grans % 0.3; Lymphocytes % 26.5; MCH 29.6 pg (27.0-33.0); MCHC 32.5 % (32.0-36.0); MPV 9.9 fL (8.0-11.0); Monocytes % 5.4; Platelet Count 264 10^3/uL (130-400); RBC 4.33 10^6/uL (3.93-5.22); RDW 12.8 % (11.7-14.6); RDW-SD 42.6 fL; WBC 9.45 10^3/uL (4.4-10.8)
[2021-08-12 11:22] LABS: TSH (W/Ref FT4) 1.01 uIU/mL (0.36-3.74)
[2021-08-13 09:08] LABS: Hepatitis B Surface Ag Negative (Negative)
[2021-08-13 09:41] LABS: Hepatitis C Ab w Rflx HCV PCR Negative (Negative)
[2021-08-13 10:13] LABS: HIV-1/2 Ag & Ab Screen Negative (Negative)
[2021-08-13 10:53] LABS: Varicella IgG Antibody Positive (See Note)
[2021-08-13 11:00] LABS: Rubella IgG Ab (UVM) Positive (See Note)
[2021-08-14 00:33] LABS: Syphilis IgG w/Reflex Nonreactive (Nonreactive)
[2021-08-17 02:26] LABS: Specimen WB Whole Blood
== END 2021-08-12 04:38 | disposition home or self-care (01) ==
LOC: LBO 04:38
PROVIDERS: PCP Family Medicine; Visit Provider Advanced Practice Midwife
DX: Z34.91 Encounter for supervision of normal pregnancy, unspecified, first trimester (principal); F41.8 Other specified anxiety disorders; Z3A.12 12 weeks gestation of pregnancy
CPT/HCPCS: 81329; 86787; 86803; 86850; 86900; 86901; 87340; 87389; 87491; 87591; 84443; 85025; 86762; 86780

== ENCOUNTER 2021-08-12 21:33 | Outpatient (REF) | payer OTHER, SELFPAY ==
[2021-08-12 18:04] LABS: *AMPHETAMINES SCREEN URINE Negative (Negative); *BARBITURATES SCREEN URINE Negative (Negative); *BENZODIAZEPINES SCREEN URINE Negative (Negative); Cannabinoids THC Negative (Negative); Cocaine Screen,Urine Negative (Negative); METHADONE URINE SCREEN Negative (Negative); OPIATES URINE SCREEN Negative (Negative)
[2021-08-12 18:24] LABS: Tricyclic Antidepressants Positive (Negative)
[2021-08-14 14:14] LABS: Chlamydia Result Negative (Negative); GC Result Negative (Negative)
[2021-08-18 14:04] LABS: Buprenorphine Negative ng/mL (Cutoff: 5.0); Norbuprenorphine Negative ng/mL (Cutoff: 2.5)
== END 2021-08-12 21:34 | disposition home or self-care (01) ==
LOC: LBN 21:33
PROVIDERS: PCP Family Medicine; Visit Provider Advanced Practice Midwife
DX: Z34.91 Encounter for supervision of normal pregnancy, unspecified, first trimester (principal); Z3A.12 12 weeks gestation of pregnancy
CPT/HCPCS: 80307; 87491; 87591; 87086

== ENCOUNTER 2021-09-11 04:16 | Outpatient (CLI) | payer OTHER, SELFPAY ==
[2021-09-17 11:30] LABS: AFP 40.7 ng/mL; Calculated age at EDD 32 years; Cigarette smoking status non-Smoker; GA used in risk estimate Scan estimate; IVF Pregnancy No; Initial or repeat testing Initial testing; Insulin dependent diabetes No; Maternal Weight 175 lbs; Number of Fetuses 1; Physician Phone Number 802-748-7300; Prev Pregnancy w/NTD No; RECOMMENDED FOLLOW UP None.; Results Summary Normal risk
== END 2021-09-11 04:17 | disposition home or self-care (01) ==
LOC: LBO 04:16
PROVIDERS: PCP Family Medicine; Visit Provider Advanced Practice Midwife
DX: Z34.92 Encounter for supervision of normal pregnancy, unspecified, second trimester (principal); Z36.89 Encounter for other specified antenatal screening; Z3A.16 16 weeks gestation of pregnancy
CPT/HCPCS: 36415; 82105

== ENCOUNTER 2021-12-06 01:18 | Outpatient (CLI) | payer OTHER, SELFPAY ==
[2021-12-06 09:41] LABS: Abs Immature Grans 0.04 10^3/uL (0.0-0.06); Absolute Basophil Count 0.03 10^3/uL (0.0-0.2); Absolute Eosinophil Count 0.04 10^3/uL (0.0-0.7); Absolute Lymphocyte Count 2.19 10^3/uL (1.2-3.4); Absolute Monocyte Count 0.52 10^3/uL (0.1-0.8); Absolute Neutrophil Count 7.71 10^3/uL (1.2-6.7); Basophils % 0.3; Eosinophils % 0.4; HCT 34.3 % (36.0-46.0); HGB 11.5 g/dL (11.2-15.7); Immature Grans % 0.4; Lymphocytes % 20.8; MCHC 33.5 % (32.0-36.0); MCV 87 fL (80-95); MPV 10.2 fL (8.0-11.0); Monocytes % 4.9; Neutrophils % 73.2; Platelet Count 213 10^3/uL (130-400); RBC 3.96 10^6/uL (3.93-5.22); RDW 12.9 % (11.7-14.6); RDW-SD 40.5 fL; WBC 10.53 10^3/uL (4.4-10.8)
[2021-12-06 10:02] LABS: Glucose,1 Hr (Glucola) 118 mg/dL (80-140)
== END 2021-12-06 01:19 | disposition home or self-care (01) ==
LOC: LBO 01:18
PROVIDERS: Obstetrics & Gynecology; PCP Family Medicine; Visit Provider Obstetrics & Gynecology
DX: Z34.93 Encounter for supervision of normal pregnancy, unspecified, third trimester (principal); Z3A.28 28 weeks gestation of pregnancy
CPT/HCPCS: 36415; 82950; 85025

== ENCOUNTER 2021-12-06 17:54 | Outpatient (REF) | payer OTHER, SELFPAY ==
[2021-12-06 12:20] LABS: *AMPHETAMINES SCREEN URINE Negative (Negative); *BARBITURATES SCREEN URINE Negative (Negative); *BENZODIAZEPINES SCREEN URINE Negative (Negative); Cannabinoids THC Negative (Negative); Cocaine Screen,Urine Negative (Negative); METHADONE URINE SCREEN Negative (Negative); OPIATES URINE SCREEN Negative (Negative); Tricyclic Antidepressants Negative (Negative)
== END 2021-12-06 17:55 | disposition home or self-care (01) ==
LOC: LBN 17:54
PROVIDERS: PCP Family Medicine; Visit Provider Obstetrics & Gynecology
DX: Z34.93 Encounter for supervision of normal pregnancy, unspecified, third trimester (principal); Z3A.28 28 weeks gestation of pregnancy
CPT/HCPCS: 80307

== ENCOUNTER 2021-12-24 19:23 | Outpatient (REF) | payer OTHER, SELFPAY | END 2021-12-24 19:24 | disposition home or self-care (01) | LOC: LBN 19:23 | PROVIDERS: PCP Family Medicine; Visit Provider Obstetrics & Gynecology | DX: Z34.93 Encounter for supervision of normal pregnancy, unspecified, third trimester (principal); R82.998 Other abnormal findings in urine; Z3A.31 31 weeks gestation of pregnancy | CPT/HCPCS: 87086 ==

== ENCOUNTER 2021-12-31 14:11 | Outpatient (REF) | payer OTHER, SELFPAY | END 2021-12-31 14:12 | disposition home or self-care (01) | LOC: LBN 14:11 | PROVIDERS: PCP Family Medicine; Visit Provider Obstetrics & Gynecology | DX: Z34.93 Encounter for supervision of normal pregnancy, unspecified, third trimester (principal) | CPT/HCPCS: 87086; 87480; 87510; 87660 ==

== ENCOUNTER 2022-01-15 17:34 | Outpatient (REF) | payer OTHER, SELFPAY | END 2022-01-15 17:35 | disposition home or self-care (01) | LOC: LBN 17:34 | PROVIDERS: PCP Family Medicine; Visit Provider Obstetrics & Gynecology | DX: Z34.93 Encounter for supervision of normal pregnancy, unspecified, third trimester (principal); N89.8 Other specified noninflammatory disorders of vagina; Z3A.34 34 weeks gestation of pregnancy | CPT/HCPCS: 87480; 87510; 87660 ==

== ENCOUNTER 2022-01-28 15:44 | Outpatient (REF) | payer OTHER, SELFPAY ==
[2022-01-28 13:42] LABS: *AMPHETAMINES SCREEN URINE Negative (Negative); *BARBITURATES SCREEN URINE Negative (Negative); *BENZODIAZEPINES SCREEN URINE Negative (Negative); Cannabinoids THC Negative (Negative); Cocaine Screen,Urine Negative (Negative); METHADONE URINE SCREEN Negative (Negative); OPIATES URINE SCREEN Negative (Negative)
[2022-01-28 13:45] LABS: Tricyclic Antidepressants Negative (Negative)
[2022-02-01 12:20] LABS: Buprenorphine Negative ng/mL (Cutoff: 5.0); Norbuprenorphine Negative ng/mL (Cutoff: 2.5)
== END 2022-01-28 15:45 | disposition home or self-care (01) ==
LOC: LBN 15:44
PROVIDERS: PCP Family Medicine; Visit Provider Obstetrics & Gynecology
DX: Z34.93 Encounter for supervision of normal pregnancy, unspecified, third trimester (principal)
CPT/HCPCS: 80307; 80348; 87081

== ENCOUNTER 2022-02-05 13:34 | Outpatient (CLI) | payer OTHER, SELFPAY ==
[2022-02-05 13:54] VITALS: BP 131/80; PULSE 77
--- NOTE | 2022-02-07 16:52 | W.OBNST ---
Date of service: 02/05/22 Time of Service: 14:00 NST Evaluation Reason for NST Reasons for Nonstress Test: OTHER, SEE COMMENT Reason for NST Other: Low FHR in office. Gestational Age Gestational Age in Weeks and Days: 37 Weeks and 4Days Test and Monitor Explained Test/Monitor Explained: Test Explained, Monitor Explained and Patient Verbalized Understanding Vital Signs Blood Pressure: 131/80 Pulse: 77 Urine Results Urine Protein: Negative Urine Ketones: Negative Urine Glucose: Negative Urine Blood: Negative NST Information Date on Monitor: 02/05/22 Time on Monitor: 13:25 Date off Monitor: 02/05/22 Time off Monitor: 13:47 Total Time on Monitor: 22 NST Interventions: None Contraction Frequency: None NST Evaluation Patient States Movement: Present FHR Baseline: 115 Variability: Moderate 6-25 bpm Accelerations: 15x15 Decelerations: None NST Results: Reactive Note NST Note NST Reviewed and Verified by: Hue Barton
[2022-02-07 16:53] VITALS: BP 131/80; PULSE 77
== END 2022-02-05 14:00 | disposition home or self-care (01) ==
LOC: BCD 13:41 → OBS 13:56
PROVIDERS: PCP Family Medicine; Visit Provider Obstetrics & Gynecology
DX: O36.8330 Maternal care for abnormalities of the fetal heart rate or rhythm, third trimester, not applicable or unspecified (principal); Z3A.27 27 weeks gestation of pregnancy
CPT/HCPCS: 59025

== ENCOUNTER 2022-02-11 13:16 | Outpatient (CLI) | payer OTHER, SELFPAY ==
[2022-02-11 13:40] VITALS: BP 134/72; PULSE 82
[2022-02-11 13:45] VITALS: BP 134/72; PULSE 84; TEMP 36.9
[2022-02-11 14:02] LABS: Abs Immature Grans 0.07 10^3/uL (0.0-0.06); Absolute Basophil Count 0.02 10^3/uL (0.0-0.2); Absolute Eosinophil Count 0.04 10^3/uL (0.0-0.7); Absolute Lymphocyte Count 1.54 10^3/uL (1.2-3.4); Absolute Monocyte Count 0.68 10^3/uL (0.1-0.8); Absolute Neutrophil Count 6.43 10^3/uL (1.2-6.7); Basophils % 0.2; Eosinophils % 0.5; HCT 31.3 % (36.0-46.0); Immature Grans % 0.8; Lymphocytes % 17.5; MCH 26.6 pg (27.0-33.0); MCHC 31.9 % (32.0-36.0); MCV 83 fL (80-95); MPV 10.7 fL (8.0-11.0); Monocytes % 7.7; Neutrophils % 73.3; Platelet Count 200 10^3/uL (130-400); RBC 3.76 10^6/uL (3.93-5.22); RDW 14.5 % (11.7-14.6); RDW-SD 43.2 fL; WBC 8.78 10^3/uL (4.4-10.8)
[2022-02-11 14:23] LABS: ALT 27 U/L (14-59); AST 24 U/L (15-37); Albumin 2.5 g/dL (3.4-5.0); Alkaline Phosphatase 168 U/L (46-116); Anion Gap 8.1 mmol/L (3-11); BUN 7 mg/dL (7-18); Bilirubin, Total 0.2 mg/dL (0.2-1.0); CO2 22.9 mmol/L (21.0-32.0); CREATININE 0.7 mg/dL (0.55-1.02); Calcium 8.6 mg/dL (8.5-10.1); Chloride 105 mmol/L (98-107); Estimated GFR 117.77 (mL/min/1.73m2); Glucose 101 mg/dL (74-106); Sodium 136 mmol/L (136-145); Total Protein 6.5 g/dL (6.4-8.2)
[2022-02-11 14:33] VITALS: BP 134/72; PULSE 75
[2022-02-11 14:43] LABS: COMMENT (LAB VIEW ONLY) 169.29 mg/dL; PROTEIN 33.1 mg/dL; Prot/Crea Ur Ratio 0.19
== END 2022-02-11 14:54 | disposition home or self-care (01) ==
LOC: BCD 13:17 → OBS 13:19
PROVIDERS: Obstetrics & Gynecology; PCP Family Medicine; Visit Provider Obstetrics & Gynecology
DX: O13.3 Gestational [pregnancy-induced] hypertension without significant proteinuria, third trimester (principal)
CPT/HCPCS: 36415; 80053; 86850; 86900; 86901; 59025; 82565; 84156; 85025

== ENCOUNTER 2022-02-15 06:56 | Inpatient (IN) | payer OTHER, SELFPAY ==
[2022-02-15] VITALS (12 sets, daily range): BP systolic 126–142; BP diastolic 63–83; PULSE 65–88; RESP 16–20; TEMP 36.5–37
[2022-02-15] MEDS: Lidocaine 1% Multi-Dose 20 ML VIAL IJ (07:15)
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
--- NOTE | 2022-02-15 08:00 | OBVDS_ITS ---
Date of service: 02/15/22 Time of Service: 08:00 OB Labor/ Delivery Information Baby A Delivery Delivery Method: Spontaneaous (Precipitous, onset of contractions delivery less than 1 hour) Presentation: Cephalic Cord Description-Baby A: 3 Vessels Amniotic Fluid: Clear Estimated Blood Loss: 100 Note: Patient is a 31-year-old female 2 para 1 who had onset of contractions at approximately 6 AM. She called the center and presented here in active labor , on presentation to the unit. She was taken to immediately to a delivery room and in the attendance of Maricarmen Gatica CNM who was present from the floor, baby delivered spontaneously. Patient was moved to the bed, and disrobed, but baby delivered without difficulty. She was placed skin to skin with mom, there was delayed cord clamping. Placenta delivered spontaneously. Upon my arrival, mom is or stable condition with strong bonding observe d. Placenta delivered spontaneously and was found to be completely intact with evidence of a succenturiate lobe three-vessel cord noted. Cord blood sample has been obtained. Upon inspection of the vulva and perineum there was noted to be a second-degree periclitoral laceration. This area was infiltrated with 1% lidocaine 2 simple interrupted stitches of 4-0 Vicryl reapproximated and hemostatic. Upon inspection of the vulva there was no additional laceration noted. Uterus is firm and 3 cm below the umbilicus. Estimated blood loss was approximately 100 cc. Both mother and and baby are stable postdelivery with skin to skin and strong bonding observed. Providers Doctor: Kathy Fernandez Nurse Private Pilot: Maricarmen Brandt
[2022-02-15] MEDS: Acetaminophen 325 MG TAB 650 MG PO ×3 (09:15→20:35)
[2022-02-15] MEDS: Dibucaine 1% 28 GM TUBE TP (09:17)
[2022-02-15] MEDS: Oxytocin 10 UNITS/ML VIAL IM (09:17)
[2022-02-15] MEDS: Hamamelis Leaf/Glycerin 100 EACH BOX PR (09:18)
[2022-02-15] MEDS: Ibuprofen 600 MG TAB PO ×2 (14:28→20:35)
[2022-02-15] MEDS: Citalopram 10 MG TAB PO (17:31)
[2022-02-15] MEDS: Docusate Sodium 100 MG CAP PO (20:36)
[2022-02-16 00:30] VITALS: BP 129/85; PULSE 72; RESP 18
[2022-02-16] MEDS: Acetaminophen 325 MG TAB 650 MG PO ×4 (01:47→18:54)
[2022-02-16 07:04] LABS: HCT 29.7 % (36.0-46.0); HGB 9.3 g/dL (11.2-15.7); MCHC 31.3 % (32.0-36.0); MCV 83 fL (80-95); MPV 10.7 fL (8.0-11.0); Platelet Count 220 10^3/uL (130-400); RBC 3.58 10^6/uL (3.93-5.22); RDW 14.5 % (11.7-14.6); RDW-SD 43.2 fL
[2022-02-16 08:45] VITALS: BP 120/84; PULSE 88; RESP 20; TEMP 37
[2022-02-16] MEDS: Citalopram 10 MG TAB PO (08:48)
[2022-02-16] MEDS: Docusate Sodium 100 MG CAP 200 MG PO (08:51)
[2022-02-16] MEDS: Omeprazole 20 MG CAPCR PO ×2 (08:54)
[2022-02-16] MEDS: Ibuprofen 600 MG TAB PO ×2 (08:56→14:25)
--- NOTE | 2022-02-16 10:18 | W.PM.OBPNV1 ---
Date of service: 02/16/22 Time of Service: 10:18 Assessment and Plan Assessment and plan (1) Normal vaginal delivery of second : Status: Acute Assessment and plan: Routine care, anticipate discharge home tomorrow. (2) COVID-19 affecting in third trimester: Status: Acute Assessment and plan: Mild symptoms (3) Group B streptococcal carriage complicating : Status: Acute Assessment and plan: In light of precipitous delivery, patient did not receive appropriate antibiotic prophylaxis. Baby will be monitored for 48 hours postdelivery. Pediatrics aware Subjective Subjective Interval history: Patient is overall doing well. She does. She is breast-feeding without significant difficulties. She is some. Continue to rest, hydrate, and Routine postoperative care. baby status: Doing well and Nursing well feeding status: Exclusively breast feeding Exam Physical Exam Vital signs: Temp Pulse Resp BP 97.7 F 72 18 129/85 02/15/22 20:30 02/16/22 00:30 02/16/22 00:30 02/16/22 00:30 Vital Signs Reviewed: Yes Constitutional Constitutional: no acute distress HEENT Exam HEENT Exam: Normal Neck Exam Neck Exam: Normal Respiratory Exam Respiratory Exam: Normal Cardiovascular Exam Cardiovascular Exam: Normal Abdominal Exam Comments: Soft, nontender Fundal Exam Fundus: Below Umbilicus and Firm Extremities Exam Extremity Exam: Normal Neurological Exam Neurological Exam: Normal Psychiatric Exam Psychiatric Exam: Normal Results Hemoglobin/Hematocrit: Hgb 9.3 g/dL (11.2-15.7) L 02/16/22 06:07 Hct 29.7 % (36.0-46.0) L 02/16/22 06:07 Abnormal Lab Findings: Abnormal Labs 02/16/22 06:07 WBC 13.80 H RBC 3.58 L Hgb 9.3 L Hct 29.7 L MCH 26.0 L MCHC 31.3 L
[2022-02-16] MEDS: guaiFENesin/D-METHORPHAN HB 5 ML CUP PO ×2 (14:26→18:54)
[2022-02-16 16:15] VITALS: BP 133/80; PULSE 76; RESP 16; TEMP 36.8; O2SAT 96
[2022-02-16] MEDS: Dibucaine 1% 28 GM TUBE TP (18:54)
[2022-02-16] MEDS: Hamamelis Leaf/Glycerin 100 EACH BOX PR (18:54)
[2022-02-16] MEDS: diphenhydrAMINE 25 MG CAP 50 MG PO (20:10)
[2022-02-16 22:00] VITALS: BP 118/69; PULSE 68; RESP 18; TEMP 36.8
[2022-02-17] MEDS: Acetaminophen 325 MG TAB 650 MG PO ×2 (00:18→06:29)
[2022-02-17] MEDS: guaiFENesin/D-METHORPHAN HB 5 ML CUP PO (00:25)
[2022-02-17] MEDS: Ibuprofen 600 MG TAB PO (06:29)
[2022-02-17] MEDS: Omeprazole 20 MG CAPCR PO (07:50)
[2022-02-17] MEDS: Citalopram 10 MG TAB PO (07:50)
[2022-02-17 08:04] VITALS: BP 129/83; PULSE 91; RESP 18; TEMP 36.7
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
== END 2022-02-17 12:00 | disposition home or self-care (01) | DRG 805 ==
PROVIDERS: Admitting Provider Obstetrics & Gynecology; PCP Family Medicine; Visit Provider Obstetrics & Gynecology
DX: O98.52 Other viral diseases complicating childbirth (principal); U07.1 COVID-19; Z37.0 Single live birth; O99.824 Streptococcus B carrier state complicating childbirth; O62.3 Precipitate labor; O70.1 Second degree perineal laceration during delivery; O43.193 Other malformation of placenta, third trimester; O99.344 Other mental disorders complicating childbirth; O99.284 Endocrine, nutritional and metabolic diseases complicating childbirth; E28.2 Polycystic ovarian syndrome; O99.62 Diseases of the digestive system complicating childbirth; F41.8 Other specified anxiety disorders; Z3A.39 39 weeks gestation of pregnancy; K59.00 Constipation, unspecified; G89.29 Other chronic pain
CPT/HCPCS: 85027; 86850; 86900; 86901; J2590; J3490

== ENCOUNTER 2022-02-18 15:23 | Outpatient (REF) | payer OTHER, SELFPAY ==
[2022-02-18 15:58] LABS: HCT 32.2 % (36.0-46.0); HGB 10.1 g/dL (11.2-15.7); MCH 26.2 pg (27.0-33.0); MCHC 31.4 % (32.0-36.0); MCV 84 fL (80-95); MPV 10.7 fL (8.0-11.0); Platelet Count 292 10^3/uL (130-400); RBC 3.85 10^6/uL (3.93-5.22); RDW 14.6 % (11.7-14.6); RDW-SD 44.1 fL; WBC 11.34 10^3/uL (4.4-10.8)
[2022-02-18 16:20] LABS: ALT 29 U/L (14-59); AST 33 U/L (15-37); Albumin 2.8 g/dL (3.4-5.0); Alkaline Phosphatase 146 U/L (46-116); Anion Gap 7.6 mmol/L (3-11); BUN 10 mg/dL (7-18); Bilirubin, Total 0.2 mg/dL (0.2-1.0); CO2 25.4 mmol/L (21.0-32.0); CREATININE 0.6 mg/dL (0.55-1.02); Calcium 8.8 mg/dL (8.5-10.1); Chloride 105 mmol/L (98-107); Estimated GFR 122.23 (mL/min/1.73m2); Glucose 88 mg/dL (74-106); Potassium 4.5 mmol/L (3.5-5.1); Sodium 138 mmol/L (136-145); Total Protein 6.7 g/dL (6.4-8.2); Uric Acid 4.5 mg/dL (2.6-6.0)
[2022-02-18 16:24] LABS: COMMENT (LAB VIEW ONLY) 34.95 mg/dL; PROTEIN 7.7 mg/dL; Prot/Crea Ur Ratio 0.22
== END 2022-02-18 15:24 | disposition home or self-care (01) ==
LOC: NCHCN 15:23
PROVIDERS: PCP Family Medicine; Visit Provider Family Medicine
DX: R03.0 Elevated blood-pressure reading, without diagnosis of hypertension (principal)
CPT/HCPCS: 80053; 85027; 82565; 84156; 84550

== ENCOUNTER 2023-04-14 15:50 | Outpatient (REF) | payer OTHER, SELFPAY ==
[2023-04-14 15:47] LABS: Abs Immature Grans 0.02 10^3/uL (0.0-0.06); Absolute Basophil Count 0.03 10^3/uL (0.0-0.2); Absolute Eosinophil Count 0.07 10^3/uL (0.0-0.7); Absolute Lymphocyte Count 2.54 10^3/uL (1.2-3.4); Absolute Monocyte Count 0.43 10^3/uL (0.1-0.8); Absolute Neutrophil Count 4.78 10^3/uL (1.2-6.7); Basophils % 0.4; Eosinophils % 0.9; HCT 42.7 % (36.0-46.0); HGB 13.7 g/dL (11.2-15.7); Immature Grans % 0.3; Lymphocytes % 32.3; MCH 29.4 pg (27.0-33.0); MCHC 32.1 % (32.0-36.0); MCV 92 fL (80-95); MPV 10.1 fL (8.0-11.0); Monocytes % 5.5; Neutrophils % 60.6; Platelet Count 326 10^3/uL (130-400); RBC 4.66 10^6/uL (3.93-5.22); RDW 13.2 % (11.7-14.6); RDW-SD 44.7 fL; WBC 7.87 10^3/uL (4.4-10.8)
[2023-04-14 17:24] LABS: Calculated LDL 139 mg/dL (<100); Cholesterol 245 mg/dL (<200); HDL Cholesterol 75 mg/dL (40-60); Triglyceride 158 mg/dL (<150)
== END 2023-04-14 15:51 | disposition home or self-care (01) ==
LOC: NCHCN 15:50
PROVIDERS: PCP Family Medicine; Visit Provider Family Medicine
DX: Z00.00 Encounter for general adult medical examination without abnormal findings (principal); Z13.0 Encounter for screening for diseases of the blood and blood-forming organs and certain disorders involving the immune mechanism; Z13.220 Encounter for screening for lipoid disorders
CPT/HCPCS: 80061; 85025

== ENCOUNTER 2023-05-30 09:57 | Outpatient (REF) | payer OTHER, SELFPAY ==
[2023-06-01 13:02] LABS: Chlamydia Result Negative (Negative); GC Result Negative (Negative)
== END 2023-05-30 09:58 | disposition home or self-care (01) ==
LOC: LBN 09:57
PROVIDERS: PCP Family Medicine; Visit Provider Physician Assistant
DX: N76.0 Acute vaginitis (principal)
CPT/HCPCS: 87491; 87591; 87480; 87510; 87660

== ENCOUNTER 2023-05-30 10:02 | Outpatient (CLI) | payer OTHER, SELFPAY ==
--- NOTE | 2023-05-30 10:00 | RT.EKG_ITS ---
APPROVED REPORT Exam: Resting ECG Reason for Exam: Yeast infection Patient Location: O HR:73 bpm ECG Measurements Heart Rate 73 AXIS MA 141 P 78 QRSd 85 QRS 69 QT 386 T 53 QTc 426 Conclusion Sinus rhythm...normal P axis, V-rate 50- 99 Normal Electrocardiogram
== END 2023-05-30 10:03 | disposition home or self-care (01) ==
LOC: DI.CM 10:04
PROVIDERS: PCP Family Medicine; Visit Provider Physician Assistant
DX: F41.9 Anxiety disorder, unspecified (principal)
CPT/HCPCS: 93010

== ENCOUNTER 2023-06-18 15:08 | Outpatient (REF) | payer OTHER, SELFPAY | END 2023-06-18 15:09 | disposition home or self-care (01) | LOC: LBN 15:08 | PROVIDERS: PCP Family Medicine; Visit Provider Physician Assistant | DX: J02.9 Acute pharyngitis, unspecified (principal) | CPT/HCPCS: 87070 ==

== ENCOUNTER 2023-10-27 16:16 | Outpatient (REF) | payer OTHER, SELFPAY ==
--- NOTE | 2023-10-27 15:30 | PAPFT_PTH ---
PATIENT: Shawn Whitney LOC: [facility] U#:[id number] AGE/SX: 33/F ROOM: RE10/27/[address]: Kathy Fernandez DO : 1990 BED: DIS: 10/27/2023 SPEC #: [id number] RECD: 10/27/23 17:44 STATUS: SIDDHARTHA REQ #: [id number] SUNG: 10/27/23 15:[address]: Kathy Fernandez DEPT: [facility] Cytology RECD BY: Malorie Peguero ENTERED: 10/27/23 17:45 SP TYPE: PAPFT OTHR DR: Allen Cui Tissues: 1 - CX/ENDOCX FOR PAP SMEARS Procedures: PAP THIN PREP/UVM Screening HPV DNA PROBE Comments: [id number] (HPV 16 & 18/45)
== END 2023-10-27 16:17 | disposition home or self-care (01) ==
LOC: LBN 16:16
PROVIDERS: PCP Family Medicine; Visit Provider Obstetrics & Gynecology
DX: Z12.4 Encounter for screening for malignant neoplasm of cervix (principal)
CPT/HCPCS: 88142; 87624

== ENCOUNTER 2024-04-22 00:10 | Outpatient (CLI) | payer OTHER, SELFPAY ==
--- NOTE | 2024-04-22 | DI.RAD_ITS ---
Exam(s) XR ANKLE RT COMPLETE EXAM: XR ANKLE RT COMPLETE CLINICAL HISTORY: POST TRAUMATIC OSTEOARTHRITIS. TECHNIQUE: 2D digital imaging was performed. COMPARISON: No exams were available for comparison FINDINGS: 3 views No evidence of acute fracture no widening of the ankle mortise. There are mild degenerative changes in the ankle tibiotalar joint. The appearance of the calcaneus is probably related to healed prior f racture. There is also abnormality in the diaphysis at the midshaft of the tibia which is probably related to healed fracture site. No findings in the visualized lower half of the fibula. IMPRESSION: No acute fractures. Healed fracture of the calcaneus. Mild degenerative changes. Abnormality in the midshaft of the tibia partially included in the field of view which is probably re lated to prior healed fracture site. DATA REPOSITORY: RADIATION DOSE DELIVERED:
--- NOTE | 2024-04-22 | DI.RAD_ITS ---
Exam(s) XR ANKLE LT COMPLETE EXAM: XR ANKLE LT COMPLETE CLINICAL HISTORY: POST TRAUMATIC OSTEOARTHRITIS. TECHNIQUE: 2D digital imaging was performed. COMPARISON: CR XR ANKLE RT COMPLETE from 04/22/2024 FINDINGS: 3 views No evidence of fracture or widening the ankle mortise. Talar dome unremarkable. Calcaneus on this s yani appears unremarkable as does the subtalar joint. No osseous tarsal coalition. There is a healed oblique fracture in the distal half of the fibula. There is also a probable healed fracture of the distal tibia. There are no fractures at the level of the malleoli. There is a donnie icated round calcific densities subjacent to the medial malleolus which is either an accessory ossicl e or remote fracture fragment. On the lateral view there is some elevated periosteal calcification of the anterior tibia noted. IMPRESSION: Healed fractures distal tibia and mid-lower 3rd of the fibula. No acute fractures evident in the lef t ankle. DATA REPOSITORY: RADIATION DOSE DELIVERED:
== END 2024-04-22 00:30 ==
LOC: DI 00:10
PROVIDERS: PCP Family Medicine; Visit Provider Neuromusculoskeletal Medicine & OMM
DX: M19.172 Post-traumatic osteoarthritis, left ankle and foot (principal); M19.071 Primary osteoarthritis, right ankle and foot
CPT/HCPCS: 73610

== ENCOUNTER 2024-09-02 13:24 | Outpatient (REF) | payer OTHER, SELFPAY ==
[2024-09-02 16:07] LABS: Hemoglobin A1C 5.3 % (<5.7)
[2024-09-02 16:08] LABS: ALT 18 U/L (14-59); AST 15 U/L (15-37); Albumin 4.5 g/dL (3.4-5.0); Alkaline Phosphatase 81 U/L (46-116); Anion Gap 5.8 mmol/L (3-11); BUN 9 mg/dL (7-18); Bilirubin, Total 0.4 mg/dL (0.2-1.0); CO2 30.2 mmol/L (21.0-32.0); CREATININE 0.8 mg/dL (0.55-1.02); Calcium 9.5 mg/dL (8.5-10.1); Calculated LDL 114 mg/dL (<100); Chloride 103 mmol/L (98-107); Cholesterol 212 mg/dL (<200); Estimated GFR 98.48 (mL/min/1.73m2); Glucose 97 mg/dL (74-106); HDL Cholesterol 66 mg/dL (>or=50); Potassium 4.6 mmol/L (3.5-5.1); Sodium 139 mmol/L (136-145); TSH (W/Ref FT4) 1.29 uIU/mL (0.36-3.74); Total Protein 7.5 g/dL (6.4-8.2); Triglyceride 164 mg/dL (<150)
== END 2024-09-02 13:25 | disposition home or self-care (01) ==
LOC: NCHCN 13:24
PROVIDERS: PCP Family Medicine; Visit Provider Family Medicine
DX: E66.3 Overweight (principal); Z13.1 Encounter for screening for diabetes mellitus; Z13.220 Encounter for screening for lipoid disorders
CPT/HCPCS: 80053; 80061; 83036; 84443